=== PATIENT | male | born 1975 | race African-American/Black ===

== ENCOUNTER 2022-04-17 06:05 | Day surgery (SDC) | payer OTHER ==
[2022-04-15 15:09] VITALS: BMI 37.4
[2022-04-17] MEDS ORDERED: LIDOCAINE HCL 2% (20ML MULTI-DOSE VIAL) ONE (07:05)
[2022-04-17] MEDS ORDERED: PROPOFOL 20 ML ONE ×3 (07:07→08:09)
[2022-04-17] MEDS ORDERED: MIDAZOLAM HCL 2 MG/2 ML SINGLE DOSE VIAL ONE (07:08)
[2022-04-17] MEDS ORDERED: SUCCINYLCHOLINE CHLORIDE 200 MG/10 ML SYRINGE ONE (07:10)
[2022-04-17] MEDS ORDERED: LIDOCAINE HCL 2% (50ML VIAL) INF ONE (08:08)
[2022-04-17 09:42] VITALS: RESP 18; TEMP 98
[2022-04-17] MEDS ORDERED: LACTATED RINGERS SOLUTION 1,000 ML IV SCH (10:00)
[2022-04-17 10:09] VITALS: BP 142/92; PULSE 69
== END 2022-04-17 10:25 | disposition home or self-care (01) ==
LOC: FASU 06:05
PROVIDERS: ATTEND Orthopaedic Surgery
PROC: 0JBJ0ZZ Excision of Right Hand Subcutaneous Tissue and Fascia, Open Approach (ICD-10-PCS; principal; 2022-04-17 07:30)
DX: M67.34 Transient synovitis, hand (principal); M79.89 Other specified soft tissue disorders
CPT/HCPCS: 88305-TC; 94760